=== PATIENT | female | born 1995 | race African-American/Black ===

== ENCOUNTER 2019-04-15 08:55 | Emergency (ER) | payer SELFPAY ==
[~2019-04-15] VITALS: Ht 172.7 cm; Wt 57.2 kg
[2019-04-15] MEDS ORDERED: IV NORMAL SALINE 1,000ML 1,000 ML IV SCH (09:02)
--- NOTE | 2019-04-15 09:10 | PHYS DOC ---
Adult General Chief Complaint Chief Complaint: ASTHMA HPI HPI Patient is a 24-year-old female who presents with complaint of acute shortness of breath and wheezing that started just prior to arrival. had been at gymnasium, working out when she became short of breath. Patient did not have her inhaler with report that time. She does indicate that she has history of asthma and has had an episode severe enough to require intubation. EMS reports that they had given a DuoNeb while in route as well as 0.5 mg of IM epinephrine. They do report that patient's respiratory status has dramatically improved since treatment was initiated. They state that patient's oxygen saturation was 84% on their arrival. Patient still complains of significant shortness of breath. Unable to obtain additional history at this time due to respiratory distress.[] Review of Systems Review of Systems Constitutional: Denies fever or chills [] Respiratory: Positive cough and shortness of breath [] Cardiovascular: No additional information not addressed in HPI [] GI: Denies abdominal pain, nausea, vomiting or diarrhea [] Integument: Denies rash or skin lesions [] Neurologic: Denies headache, focal weakness or sensory changes [] All other systems were reviewed and found to be within normal limits, except as documented in this note. Physical Exam Physical Exam Constitutional: Well developed, well nourished, in mild respiratory distress, non-toxic appearance. [] HENT: Normocephalic, atraumatic, bilateral external ears normal, oropharynx moist, no oral exudates, nose normal. [] Eyes: PERRLA, EOMI, conjunctiva normal, no discharge. [] Neck: Normal range of motion, no tenderness, supple, no stridor. [] Cardiovascular: Tachycardic rate with regular rhythm[] Lungs & Thorax: There are inspiratory and expiratory wheezes noted bilaterally to auscultation [] Abdomen: Bowel sounds normal, soft, no tenderness. [] Skin: Warm, dry, no erythema, no rash. [] Extremities: No tenderness, no cyanosis, no clubbing, ROM intact. [] Neurologic: Alert and oriented X 3, no focal deficits noted. [] EKG EKG [] Radiology/Procedures Radiology/Procedures [] Impressions: PROCEDURE: PORTABLE CHEST 1V PORTABLE CHEST 1V Clinical indications: Shortness of breath. Asthma. COMPARISON: None available. Findings: No acute lung infiltrate or pleural effusion or pulmonary edema or lung mass or pneumothorax is seen. The heart size, pulmonary vasculature, mediastinum and both huy are unremarkable. Impression: No acute radiographic abnormality is seen. Electronically signed by: Osiel Whittington MD (04/15/2019 9:40 AM) [id number] DICTATED AND SIGNED BY: OSIEL WHITTINGTON MD DATE: 04/15/19 0940 Course & Med Decision Making Course & Med Decision Making Pertinent Labs and Imaging studies reviewed. (See chart for details) [] Dragon Disclaimer Dragon Disclaimer This electronic medical record was generated, in whole or in part, using a voice recognition dictation system. Departure Departure: Impression: Primary Impression: Asthma attack Disposition: HOME, SELF-CARE Condition: STABLE Referrals: PCP,NO (PCP) Patient Instructions: Asthma, Adult Scripts Albuterol Sulfate (PROAIR HFA INHALER) 8.5 Gm Hfa.aer.ad 2 PUFF INH PRN Q6HRS PRN for SHORTNESS OF BREATH, #1 INHALER 1 Refill Prov: PA KERR Jr. DO 04/15/19 Problem Qualifiers Primary Impression: Asthma attack Asthma severity: moderate Asthma persistence: unspecified Qualified Codes: J45.901 - Unspecified asthma with (acute) exacerbation PA KERR Jr. DO Apr 15, 2019 09:10
[2019-04-15 09:14] LABS: BASO # 0.1 x10^3/uL (0.0-0.2); BASO % 1 % (0-3); EOS # 0.1 x10^3/uL (0.0-0.7); EOS % 1 % (0-3); HEMATOCRIT 43.3 % (36.0-47.0); HEMOGLOBIN 14.3 g/dL (12.0-15.5); LYMPH # 4.4 x10^3/uL (1.0-4.8); LYMPH % 52 % (24-48); MEAN CORPUSCULAR HEMOGLOBIN 29 pg (25-35); MEAN CORPUSCULAR HGB CONC 33 g/dL (31-37); MEAN CORPUSCULAR VOLUME 89 fL (79-100); MONO # 0.6 x10^3/uL (0.0-1.1); MONO % 7 % (0-9); NEUT # 3.3 x10^3uL (1.8-7.7); NEUT % 39 % (31-73); PLATELET COUNT 297 x10^3/uL (140-400); RED BLOOD COUNT 4.85 x10^6/uL (3.50-5.40); RED CELL DISTRIBUTION WIDTH 14.4 % (11.5-14.5); WHITE BLOOD COUNT 8.5 x10^3/uL (4.0-11.0)
[2019-04-15] MEDS ORDERED: methylPREDNISolone SOD SUCC PF 125 MG/2 ML VIAL. IV ONE (09:15)
[2019-04-15] MEDS ORDERED: IPRATROPIUM BROMIDE 0.5 MG/2.5 ML NEBU. NEB ONE (09:15)
[2019-04-15] MEDS ORDERED: MAGNESIUM SULFATE 2GM 50 ML IV ONE (09:15)
[2019-04-15] MEDS ORDERED: ALBUTEROL SULFATE 2.5 MG/3 ML NEBU. CONT NEB ONE (09:15)
[2019-04-15 09:29] LABS: ALBUMIN/GLOBULIN RATIO 0.9 (1.0-1.7); CALCIUM 9.1 mg/dL (8.5-10.1); GFR 81.1; POTASSIUM 3.4 mmol/L (3.5-5.1); TOTAL BILIRUBIN 0.3 mg/dL (0.2-1.0); TOTAL PROTEIN 8.5 g/dL (6.4-8.2)
--- NOTE | 2019-04-15 09:43 | RAD ---
PORTABLE CHEST 1V Clinical indications: Shortness of breath. Asthma. COMPARISON: None available. Findings: No acute lung infiltrate or pleural effusion or pulmonary edema or lung mass or pneumothorax is seen. The heart size, pulmonary vasculature, mediastinum and both huy are unremarkable. Impression: No acute radiographic abnormality is seen. Electronically signed by: Artem Whittington MD (04/15/2019 9:40 AM) [id number]
[2019-04-15 10:19] LABS: INFLUENZA A PATIENT NEGATIVE (NEGATIVE); INFLUENZA B PATIENT NEGATIVE (NEGATIVE)
[2019-04-15 10:31] VITALS: BP 132/85
[2019-04-15] MEDS ORDERED: ALBU2.5V8 INH (10:32)
--- NOTE | 2019-04-15 11:26 | EKG ---
[address] [address] Test Date: 2019-04-15 Test Time: 09:16:27 Pat Name: [facility] Department: Room: Gender: F Medical Cash Poster: LYNDSEY : 1995 Requested By: PA KERR Order Number: [id number] Reading MD: Measurements Intervals [place] Rate: 109 P: 64 UT: 136 QRS: 56 QRSD: 82 T: 22 QT: 324 QTc: 438 Interpretive Statements SINUS TACHYCARDIA QRS(T) CONTOUR ABNORMALITY CONSIDER ANTEROSEPTAL MYOCARDIAL DAMAGE POSSIBLY ABNORMAL ECG RI6.01 No previous ECG available for comparison
== END 2019-04-15 10:54 | disposition home or self-care (01) ==
LOC: ER 08:55
DX: J45.901 Unspecified asthma with (acute) exacerbation (principal)
CPT/HCPCS: 36415; 71045; 80053; 85025; 85379; 87804; 93005; 94640; 96365; 96366; 96375; 99285; J2930; J3475; J7613; J7644; J7030

== ENCOUNTER 2020-05-10 22:49 | Emergency (ER) | payer SELFPAY ==
[~2020-05-10] VITALS: Ht 172.7 cm; Wt 79.3 kg
[~2020-05-10 22:49] MED LIST: ALBU2.5V8 INH
[2020-05-10] MEDS ORDERED: ALBUTEROL SULFATE 2.5 MG/3 ML NEBU. NEB ONE (23:00)
[2020-05-10] MEDS ORDERED: predniSONE 10 MG TABLET PO ONE (23:00)
--- NOTE | 2020-05-10 23:28 | PHYS DOC ---
Past History Past Medical History: Asthma Past Surgical History: Other Additional Past Surgical Histo: LEFT KNEE Smoking: Non-smoker Alcohol Use: None Drug Use: None Adult General Chief Complaint Chief Complaint: ASTHMA HPI HPI Patient is a 25-year-old female who presents for shortness of breath and migraine. Patient has history of migraines, reports this current migraine started after several days of worsening shortness of breath. Patient reports longstanding history of asthma, reports having pulmonary function testing done years ago but unsure of results. She is never required anything more than a rescue inhaler. She previously used albuterol but states over the last few years, she has been persistently tachycardic and so decision was made for her to use Xopenex instead. She is not required any rescue inhalations within the past 6 months but admits approximately 4 days of worsening shortness of breath that s tarted while visiting family in [place]. She has had increased wheezing and feelings of poor air excursion versus baseline. She has no history of blood clots, not immunocompromised, has not had recent long distance travel/prolonged sedentary state, no hemoptysis. She admits using estrogen products, takes Sprintec OCPs daily. She reports having limited cardiac work-up for her pe rsistent sinus tachycardia in outpatient setting, she has never had an echo Review of Systems Review of Systems Fourteen body systems of review of systems have been reviewed. See HPI for pertinent positives and negative responses, other hernandez all other systems are negative, non-pertinent or non-contributory Current Medications Current Medications Current Medications Medications (Trade) Dose Ordered Sig/Urban Start Time Stop Time Status Last Admin Dose Admin Albuterol Sulfate (Ventolin) 2.5 mg 1X ONCE 05/10/20 23:00 05/10/20 23:19 DC Prednisone (Prednisone) 50 mg 1X ONCE 05/10/20 23:00 05/10/20 23:19 DC 05/10/20 23:18 50 MG Allergies Allergies Allergies Coded Allergies Type Severity Reaction Last Updated Verified aspirin Allergy Intermediate 04/15/19 Yes Physical Exam Physical Exam Constitutional: Well developed, well nourished, no acute distress, non-toxic appearance. HENT: Normocephalic, atraumatic, bilateral external ears normal, oropharynx moist, no oral exudates, nose normal. Eyes: PERRLA, EOMI, conjunctiva normal, no discharge. Neck: Normal range of motion, no tenderness, supple, no stridor. Cardiovascular: Heart rate tachycardic, sinus rhythm, no murmurs rubs or gallops Lungs & Thorax: No obvious respiratory distress, no accessory muscle usage, mild bilateral wheezes during exhalation Abdomen: Bowel sounds normal, soft, no tenderness, no masses, no pulsatile masses. Nonsurgical abdomen, no peritoneal signs Skin: Warm, dry, no erythema, no rash. Back: No tenderness, no CVA tenderness. Extremities: No tenderness, no cyanosis, no clubbing, ROM intact, no edema. Neurologic: Alert and oriented X 3, grossly normal motor & sensory function, no focal deficits noted. Psychologic: Affect normal, judgement normal, mood normal. Current Patient Data Vital Signs Vital Signs Date Time Temp Pulse Resp B/P (MAP) Pulse Ox O2 Delivery O2 Flow Rate FiO2 05/10/20 23:37 98 Room Air 05/10/20 23:02 97.2 123 24 148/86 (106) Lab Results Laboratory Tests Test 05/10/20 23:59 White Blood Count 12.1 x10^3/uL (4.0-11.0) Red Blood Count 3.77 x10^6/uL (3.50-5.40) Hemoglobin 10.6 g/dL (12.0-15.5) Hematocrit 32.9 % (36.0-47.0) Mean Corpuscular Volume 87 fL (79-100) Mean Corpuscular Hemoglobin 28 pg (25-35) Mean Corpuscular Hemoglobin Concent 32 g/dL (31-37) Red Cell Distribution Width 13.7 % (11.5-14.5) Platelet Count 423 x10^3/uL (140-400) Neutrophils (%) (Auto) 72 % (31-73) Lymphocytes (%) (Auto) 20 % (24-48) Monocytes (%) (Auto) 8 % (0-9) Eosinophils (%) (Auto) 0 % (0-3) Basophils (%) (Auto) 1 % (0-3) Neutrophils # (Auto) 8.7 x10^3uL (1.8-7.7) Lymphocytes # (Auto) 2.4 x10^3/uL (1.0-4.8) Monocytes # (Auto) 0.9 x10^3/uL (0.0-1.1) Eosinophils # (Auto) 0.0 x10^3/uL (0.0-0.7) Basophils # (Auto) 0.1 x10^3/uL (0.0-0.2) D-Dimer (Kera) 0.80 mg/L (0.00-0.50) Sodium Level 134 mmol/L (136-145) Potassium Level 3.6 mmol/L (3.5-5.1) Chloride Level 99 mmol/L (98-107) Carbon Dioxide Level 24 mmol/L (21-32) Anion Gap 11 (6-14) Blood Urea Nitrogen 8 mg/dL (7-20) Creatinine 0.9 mg/dL (0.6-1.0) Estimated GFR (Cockcroft-Gault) 90.9 Glucose Level 111 mg/dL (70-99) Calcium Level 10.2 mg/dL (8.5-10.1) EKG EKG EKG ordered and interpreted by myself at 2325 hrs. as sinus tachycardia at 116 bpm, unremarkable intervals, no axis deviation, no acute ischemic findings, no STEMI, no findings indicative of right heart strain or other abnormalities consistent with potential pulmonary embolism Radiology/Procedures Radiology/Procedures PROCEDURE: CHEST AP ONLY AP portable chest radiograph 05/10/2020 Clinical History: Shortness of breath. An AP erect portable digital radiograph of the chest was obtained. Comparison study is dated 04/15/2019. The cardiac and mediastinal silhouettes are within normal limits in size and configuration. No acute pulmonary infiltrate is seen. No pleural effusion or pneumothorax is noted. The osseous structures are grossly intact. Impression: No acute abnormality is seen. Electronically signed by: Imtiaz Anderson MD (05/10/2020 11:54 PM) [id number] PROCEDURE: CT ANGIOGRAPHY CHEST CT arteriogram of the chest. HISTORY: Short of breath, elevated d-dimer, asthma CT arteriogram of the chest was done using 1 mL Omnipaque 350 contrast. Coronal MIP images were reconstructed. Thyroid is generous in size without a focal lesion. There is no mediastinal adenopathy or pleural effusion. Visualized portion of the liver is unremarkable. Spleen is normal. Adrenal glands are normal. There is mild basilar atelectasis without other infiltrates. Study is negative for a pulmonary embolus. IMPRESSION: 1. Negative for pulmonary embolus. 2. Mild atelectasis without other infiltrates. PQRS Compliance Statement: One or more of the following individualized dose reduction techniques were utilized for this examination: 1. Automated exposure control 2. Adjustment of the mA and/or kV according to patient size 3. Use of iterative reconstruction technique Electronically signed by: Chau Talavera MD (05/11/2020 1:46 AM) [id number] Heart Score HEART Score for Chest Pain: HEART Score for Chest Pain Response (Comments) Value History Slighlty/Non-Suspicious 0 ECG Normal 0 Age < 45 0 Risk Factors No Risk Factors 0 Total 0 Risk Factors: Risk Factors: DM, Current or recent (<one month) smoker, HTN, HLP, family history of CAD, obesity. Risk Scores: Risk Factors: DM, Current or recent (<one month) smoker, HTN, HLP, family history of CAD, obesity. Course & Med Decision Making Course & Med Decision Making Grossly well-appearing, ambulatory and nontoxic patient seen on immediate ER arrival Airway patent, breathing unlabored without obvious distress, vitals remarkable for persistent sinus tachycardia Comprehensive history and physical exam obtained, subsequent diagnostic work-up ordered and reviewed X1 albuterol treatment and 50 mg prednisone administered for patient's asthma/wheezing. 650 mg Tylenol, 10 mg Compazine and 25 mg Benadryl administered for migraine with complete relief ER course reviewed, I disclosed with patient most likely diagnosis of typical migraine for patient which is resolved. Asthma has improved but I could not completely exclude more concerning respiratory pathology such as pulmonary embolism as she is PERC positive CT angio chest obtained and negative for pulmonary embolism Ultimately, patient symptomatically much improved since arrival. Joint decision that patient was safe enough to discharge home with close PCP follow-up. She would benefit from close follow-up in upcoming 1 to 10 days to ensure symptomatic improvement, repeat PFTs and incorporate maintenance inhaler as needed. I also feel she would benefit from further cardiovascular testing such as echocardiogram for persistent sinus tachycardia Strict return precautions were discussed with good understanding by patient, all questions and concerns addressed prior to ER departure in improved condition Dragon Disclaimer Dragon Disclaimer This electronic medical record was generated, in whole or in part, using a voice recognition dictation system. PERC Rule for PE PERC Rule for PE Response (Comments) Value Age > 50: No 0 HR > 100: Yes 1 Sa02 on room air <95%: No 0 Unilateral leg swelling: No 0 Hemoptysis: No 0 Recent surgery or trauma: No 0 Prior PE or DVT: No 0 Hormone use: Yes 1 Total 2 Departure Departure: Impression: Primary Impression: Migraine headache Additional Impressions: Asthma exacerbation Sinus tachycardia Disposition: 01 DC HOME SELF CARE/HOMELESS Condition: IMPROVED Referrals: [facility] (PCP) Patient Instructions: Asthma Prevention-Brief, Migraine Headache, Supraventricular Tachycardia Scripts Prednisone (PREDNISONE) 20 Mg Tablet 40 MG PO DAILY for bronchitis for 4 Days, #8 TAB Prov: MOODY BLAKE DO 05/11/20 Problem Qualifiers MOODY BLAKE DO May 10, 2020 23:28
--- NOTE | 2020-05-10 23:57 | RAD ---
AP portable chest radiograph 05/10/2020 Clinical History: Shortness of breath. An AP erect portable digital radiograph of the chest was obtained. Comparison study is dated 04/15/2019. The cardiac and mediastinal silhouettes are within normal limits in size and configuration. No acute pulmonary infiltrate is seen. No pleural effusion or pneumothorax is noted. The osseous structures are grossly intact. Impression: No acute abnormality is seen. Electronically signed by: Imtiaz Anderson MD (05/10/2020 11:54 PM) [id number]
[2020-05-11] MEDS ORDERED: diphenhydrAMINE 50 MG/ML VIAL IVP ONE
[2020-05-11] MEDS ORDERED: PROCHLORPERAZINE 10 MG/2 ML VIAL. IV ONE
[2020-05-11] MEDS ORDERED: IV NORMAL SALINE 1,000ML 1,000 ML IV ONE
[2020-05-11 00:14] LABS: BASO # 0.1 x10^3/uL (0.0-0.2); BASO % 1 % (0-3); EOS % 0 % (0-3); HEMATOCRIT 32.9 % (36.0-47.0); HEMOGLOBIN 10.6 g/dL (12.0-15.5); LYMPH # 2.4 x10^3/uL (1.0-4.8); LYMPH % 20 % (24-48); MEAN CORPUSCULAR HEMOGLOBIN 28 pg (25-35); MEAN CORPUSCULAR HGB CONC 32 g/dL (31-37); MEAN CORPUSCULAR VOLUME 87 fL (79-100); MONO # 0.9 x10^3/uL (0.0-1.1); MONO % 8 % (0-9); NEUT # 8.7 x10^3uL (1.8-7.7); NEUT % 72 % (31-73); PLATELET COUNT 423 x10^3/uL (140-400); RED BLOOD COUNT 3.77 x10^6/uL (3.50-5.40); RED CELL DISTRIBUTION WIDTH 13.7 % (11.5-14.5); WHITE BLOOD COUNT 12.1 x10^3/uL (4.0-11.0)
[2020-05-11 00:27] LABS: CALCIUM 10.2 mg/dL (8.5-10.1); CREATININE 0.9 mg/dL (0.6-1.0); GFR 90.9; POTASSIUM 3.6 mmol/L (3.5-5.1)
[2020-05-11] MEDS ORDERED: ACETAMINOPHEN 325 MG TABLET PO ONE (00:45)
[2020-05-11] MEDS ORDERED: CONTRAST GIVEN. MC PRN (01:00)
[2020-05-11] MEDS ORDERED: IOHEXOL 350 MG/ML 100 ML VIAL. IV ONE (01:00)
--- NOTE | 2020-05-11 01:49 | RAD ---
CT arteriogram of the chest. HISTORY: Short of breath, elevated d-dimer, asthma CT arteriogram of the chest was done using 1 mL Omnipaque 350 contrast. Coronal MIP images were reconstructed. Thyroid is generous in size without a focal lesion. There is no mediastinal adenopathy or pleural effusion. Visualized portion of the liver is unremarkable. Spleen is normal. Adrenal glands are normal. There is mild basilar atelectasis without other infiltrates. Study is negative for a pulmonary embolus. IMPRESSION: 1. Negative for pulmonary embolus. 2. Mild atelectasis without other infiltrates. PQRS Compliance Statement: One or more of the following individualized dose reduction techniques were utilized for this examination: 1. Automated exposure control 2. Adjustment of the mA and/or kV according to patient size 3. Use of iterative reconstruction technique Electronically signed by: Chau Talavera MD (05/11/2020 1:46 AM) [id number]
[2020-05-11] MEDS ORDERED: PRED20TA PO (01:55)
[2020-05-11 02:25] VITALS: BP 130/65
--- NOTE | 2020-05-11 09:51 | EKG ---
[address] [address] Test Date: 2020-05-10 Test Time: 23:19:57 Pat Name: [facility] Department: Room: Gender: F Wing Coverer: MANUELA : 1995 Requested By: MOODY BLAKE Order Number: [id number] Reading MD: Measurements Intervals [place] Rate: 116 P: 57 AL: 138 QRS: 49 QRSD: 76 T: 10 QT: 292 QTc: 411 Interpretive Statements SINUS TACHYCARDIA OTHERWISE NORMAL ECG RI6.02 No previous ECG available for comparison
== END 2020-05-11 02:25 | disposition home or self-care (01) ==
LOC: ER 22:49
DX: J45.901 Unspecified asthma with (acute) exacerbation (principal); G43.909 Migraine, unspecified, not intractable, without status migrainosus; R00.0 Tachycardia, unspecified; Z88.6 Allergy status to analgesic agent
CPT/HCPCS: 36415; 71045; 71275; 80048; 85025; 85379; 93005; 94640; 96361; 96374; 96375; 99285; J0780; J1200; J7030; J7512; J7613; Q9967